=== PATIENT | female | born 1985 | race African-American/Black ===

== ENCOUNTER 2019-01-20 00:12 | Emergency (ER) | payer SELFPAY ==
[~2019-01-20] VITALS: Ht 157.5 cm; Wt 84.0 kg
[2019-01-20 00:54] VITALS: BP 113/84
== END 2019-01-20 00:54 | disposition home or self-care (01) ==
LOC: ER 00:12
DX: R51 Headache (principal)
CPT/HCPCS: 99281

== ENCOUNTER 2019-03-29 10:44 | Emergency (ER) | payer OTHER ==
[~2019-03-29] VITALS: Ht 157.5 cm; Wt 82.0 kg
[2019-03-29 11:18] VITALS: BP 121/86
== END 2019-03-29 12:34 | disposition left against medical advice (07) ==
LOC: ER 10:44
DX: Z53.21 Procedure and treatment not carried out due to patient leaving prior to being seen by health care provider (principal)

== ENCOUNTER 2019-04-19 20:33 | Emergency (ER) | payer OTHER ==
[~2019-04-19] VITALS: Ht 157.5 cm; Wt 82.0 kg
[2019-04-19 21:04] VITALS: BP 132/99
== END 2019-04-19 22:30 | disposition left against medical advice (07) ==
LOC: ER 20:33
DX: Z53.21 Procedure and treatment not carried out due to patient leaving prior to being seen by health care provider (principal)

== ENCOUNTER 2019-11-30 13:49 | Emergency (ER) | payer OTHER ==
[~2019-11-30] VITALS: Ht 167.6 cm; Wt 100.0 kg
[2019-11-30 13:54] VITALS: BP 131/95
[2019-11-30] MEDS ORDERED: KETOROLAC 60MG/2ML VIAL IM ONE (16:30)
== END 2019-11-30 17:06 | disposition home or self-care (01) ==
LOC: ER 13:49
DX: M54.41 Lumbago with sciatica, right side (principal); R00.0 Tachycardia, unspecified; Z86.73 Personal history of transient ischemic attack (TIA), and cerebral infarction without residual deficits
CPT/HCPCS: 96372; 99283; J1885